=== PATIENT | male | born 1950 | race Caucasian/White ===

== ENCOUNTER 2017-12-04 10:05 | Inpatient (IN) ==
--- NOTE | 2017-12-04 10:20 | Anesthesia Evaluation PreOp ---
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 makes insulin and is treated as a type I diabetic for this reason; wears insulin pump), GERD Anesthesia History: No Prior Anesthetic Complications Alcohol Use: none Drug use: none Medications and Allergies Abatacept [Orencia] 04/07/16 [History] Amitriptyline [Elavil] 25 mg PO DAILY 04/07/16 [History] Aspirin [Lo-Dose Aspirin EC] 81 mg PO DAILY 04/07/16 [History] Atorvastatin [Lipitor] 40 mg PO HS 04/07/16 [History] Doxycycline 1 tab PO BID 04/07/16 [History] Fenofibrate 145 mg PO DAILY 04/07/16 [History] Insulin LISPRO [Humalog] 2 unit SQ AD 04/07/16 [History] LORazepam [Ativan] 1 tab PO DAILY 04/07/16 [History] Lisinopril [Zestril] 10 mg PO DAILY 04/07/16 [History] Magnesium Citrate 295 ml PO ONCE PRN #1 solution 04/07/16 [Rx] Multi-Day Vitamins 1 tab PO DAILY 04/07/16 [History] Omeprazole [PriLOSEC] 40 mg PO DAILY 04/07/16 [History] OxyCODONE/APAP 10/325 [Percocet 10/325 MG] 1 tab PO TID 04/07/16 [History] Polyethylene Glycol 3350 [MiraLAX Powder Bulk 17.9 Oz] 1 scoop PO DAILY #510 gm 04/07/16 [Rx] Voriconazole [VFend] 200 mg PO Q12HR 04/07/16 [History] Albuterol Sulfate [Albuterol Inhaler] 2 puff IH QID #1 inhaler 04/28/17 [Rx] Cefdinir [Omnicef] 300 mg PO BID #20 capsule 04/28/17 [Rx] PredniSONE [Deltasone] 20 mg PO DAILY 6 Days tablet 04/28/17 [Rx] chlorproMAZINE [Thorazine] 25 mg PO TID PRN #9 tablet 04/28/17 [Rx] Allergy/AdvReac Type Severity Reaction Status Date / Time levofloxacin [From Levaquin] Allergy Blister Verified 11/06/17 09:41 vancomycin Allergy Anaphylaxis Verified 11/06/17 09:41 - Meds/Allergy Pre-op Review Medications Reviewed: Yes Allergies Reviewed: Yes Beta Blockers on Current Med List: No Anesthesia Results - Labs Laboratory Tests 11/06/17 11/06/17 11/06/17 10:05 10:05 10:05 WBC 6.2 Hgb 12.8 L Hct 41.0 Plt Count 282 PT 10.1 INR 0.9 APTT 33.2 Sodium Potassium Chloride Carbon Dioxide BUN Creatinine Est GFR ( Amer) Est GFR (Non-Af Amer) BUN/Creatinine Ratio Glucose Est Mean Plasma Glucose 157 Hemoglobin A1c 7.1 H Calculated Osmolality Calcium 11/28/17 13:35 WBC Hgb Hct Plt Count PT INR APTT Sodium 139 Potassium 4.3 Chloride 105 Carbon Dioxide 26 BUN 29 H Creatinine 1.48 H Est GFR ( Amer) 58 L Est GFR (Non-Af Amer) 48 L BUN/Creatinine Ratio 20 Glucose 142 H Est Mean Plasma Glucose Hemoglobin A1c Calculated Osmolality 296 Calcium 10.5 H - Imaging EKG: report reviewed, image reviewed (SR) Anesthesia Exam Weight: 93 kg NPO (# of Hours): > 8 hrs - HEENT Pupil (Motor): Pupils equal, EOMI Mallampati: II Teeth: Edentulous Oral Opening: Greater than 3 - PARA PROFESSIONAL LOC: Oriented PARA PROFESSIONAL Motor: Normal RUE, Normal LUE, Normal RLE, Normal LLE, Normal Face - Cardiac Rhythm: Regular Murmur: None - Pulmonary Breath Sounds: bilateral Clear Respiratory Effort: Symmetrical Anesthesia Assess/Plan ASA Score: 3 Modified [place] Scale for Level of Consciousness: Cooperative, oriented, and tranquil Anesthetic Plan: Regional (Spinal block), MAC, Precautions (will keep insulin pump running; will avoid airway manipulation (neuraxial anesthesia with MAC over GETA) due to significant lung disease) Monitoring Plan: Standard Monitors Recovery Plan: PACU
--- NOTE | 2017-12-04 10:28 | History & Physical Report ---
Date of Encounter: 12/04/17 Time of Encounter: 10:27 24 Hour HP Update - Instructions Instructions: If the History and Physical is less than 30 days old and was completed prior to A.M. admission and or procedure and has NOT been updated on calendar day of procedure please complete this update prior to performing procedure. - Update Patient reports changes in Medical Condition: No Changes in examination, assessment, or condition: No Changes in Medication: No Preop tests/diagnostics Reviewed: Yes Surgery Remains Indicated: Yes Consent for Planned Operative Procedure(s) Verified: Yes - Pre-Operative Checklist Preoperative Checklist Indicated: No Prophylactic Antibiotic Ordered: Yes Is VTE Prophylaxis Indicated?: Yes
[2017-12-04] MEDS ORDERED: *HR* Morphine Sulfate/PF 10 MG/10 ML AMPUL ONE (10:54)
[2017-12-04] MEDS: Ringers Solution, Lactated 1,000 ML IVC SCH ×3 (11:00→16:57)
[2017-12-04] MEDS ORDERED: Ethanol\\Acetic Acid\\Na Ace\\Ben 1,000 ML IRRIG.SOLN IR ONE ×2 (11:01→11:11)
[2017-12-04] MEDS ORDERED: Albuterol 2.5 MG/3 ML NEBULIZER ONE (11:04)
[2017-12-04] MEDS ORDERED: CeFAZolin Syr 2,000MG/20 ML 2,000 MG/20 ML SYRINGE IVPB ONE (11:04)
[2017-12-04] MEDS ORDERED: Albuterol 2.5 MG/3 ML NEBULIZER IH ONE (11:04)
[2017-12-04] MEDS ORDERED: Lidocaine -MPF 1% 5 ML AMPUL ONE (11:06)
[2017-12-04] MEDS ORDERED: *HR* Midazolam HCl 2 MG/2 ML VIAL ONE (11:10)
[2017-12-04] MEDS ORDERED: *HR* FentaNYL (PF) 100 MCG/2 ML VIAL ONE (11:10)
[2017-12-04] MEDS ORDERED: Propofol 500 MG/50 ML INFUS..BTL ONE (11:29)
[2017-12-04] MEDS ORDERED: Lidocaine -MPF 2% 2 ML VIAL ONE (11:34)
[2017-12-04] MEDS ORDERED: Dexamethasone 4 MG/ML VIAL ONE (11:53)
[2017-12-04] MEDS ORDERED: Ondansetron 4 MG/2 ML VIAL ONE (11:53)
[2017-12-04] MEDS ORDERED: *HR* PHENYLEPHRINE 1,000 MCG/10 ML SYRINGE IVP ONE (11:57)
--- NOTE | 2017-12-04 12:11 | Anesthesia Procedures ---
Date of Encounter: 12/04/17 Time of Encounter: 11:29 Procedures: Anesthesia - Epidural/Spinal Patient ID/Chart reviewed: Yes Patient examined: Yes Consent Obtained: Yes Supplemental Oxygen: Nasal Cannula Supplemental Oxygen Rate (L/min): 2 Sedation: Versed (mg): 2 Sedation: Fentanyl (mcg): 100 Site Prep: Sterile prep and drape, Povidone-Iodine 1% Patient position: upright Local Anesthetic: Lidocaine 1% Amount of Local Anesthetic used: 3 Interspace Used: L3-L4 Blood: No CSF: Yes Paresthesia: No Spinal Needle Gauge: 22 Spinal Dose: 2.5cc 0.5% pf marcaine with 300mcg duramorph Procedure: performed by VENTURA Gay and Waleska Gilman CRNA. HR1, monitors and O2 on, vss, sitting upright, sterile prep/drape, 1% lido to L3-4, 22g quuincke to +CSF, -Heme, -Paresthesia, +swirl, smooth inj., pt to supine after inj. tolerated well, naac.
[2017-12-04] MEDS ORDERED: *HR* Propofol 200 MG/20 ML VIAL IVP ONE (12:31)
--- NOTE | 2017-12-04 12:44 | Orthopedic Operative Note ---
Date of procedure: 12/04/17 Pre-op diagnosis: left hip arthritis Post-op diagnosis: same Procedure: Procedure: Left Total Hip Replacment robotic-assisted Estimated blood loss: 200 cc Hardware: Metal and polyethylene replacement. Olga DM Cup: 60 cup Femoral 11 size stem Head: +4 head with Kristi Procedural Notes: Grade 4 arthritic changes femoral head acetabular socket, procedure performed with robotic assistance. 2 mm longer operative versus nonoperative Operative procedure: The patient was brought to the operating room and placed on the operating room table. After general anesthesia was administered the patient was placed in the lateral decubitus position with the operative leg up. All pressure points were padded appropriately and the head was stabilized in the neutral position. The operative extremity was prepped and draped in the sterile surgical fashion patient received IV antibiotic prior to skin incision. 3 Steinmann pins were placed in the iliac crest 3 cm proximal to the anterior superior iliac spine thi s was for the robotic-assisted sensor. This was done through a small 2 cm incision. A standard posterior approach is made to the operative hip, the incision was made through the skin and subcutaneous tissue hemostasis was obtained with Bovie cautery. Using careful sharp dissection the fascia was identified and incised exposing the external rotators. The greater trochanter was marked, and length was measured at this time utilizing robotic assistance. The external rotators were released off the greater trochanter and tagged with #2 FiberWire suture. The capsule was T'd open and the hip was brought into internal rotation. Patient noted to have grade 4 arthritic changes femoral head. The femoral neck cut was made at the appropriate level roughly 20 mm proximal to the lesser trochanter aced on preoperative templating. An anterior capsulotomy was performed for the anterior retractor. Soft tissues removed from the acetabulum. Patient noted to have grade 4 arthritic changes acetabulum. The acetabulum reference point was confirmed. The acetabulum was then mapped with robotic assistance. Based on the preoperative plan the acetabulum was reamed in one step with a 59 reamer. The 60 acetabulum was impacted with robotic assistance and 40 degrees of abduction and 20 degrees of anteversion. The hip was brought back in to internal rotation and prepared with the box sealing machine catcher followed by the canal finder followed by the reaming process to a size 11/12 broaching process in 20 degrees anteversion. It was broached up to the appropriate size 11 Trial reduction revealed leg lengths close to normal. The femoral implant was impacted in place in 20 degrees of anteversion. Trial reduction found the hip to be stable with 4 head and Kristi. The trials were removed and the real implants were impacted in place. The hip was reduced, patient had robotic confirmed leg length of 15 mm longer than the contralateral side. The hip had excellent stability with forward flexion to 90 degrees adduction of 30 degrees and internal rotation of 60 degrees. The hip had no shuck. The hip sat with an antibacterial solution. It was irrigated out with 2 L of pulse irrigation. The Steinmann pins were removed. The hip was closed by the PA. The deep tissue was irrigated and closed deep with #1 PDS suture superficially with 0 PDS suture and skin was closed with Dermabond and zip tie. The patient was placed in a sterile dressing and abduction pillow. The patient was extubated and transferred to the recovery room in stable condition. Anesthesia: spinal Surgeon: Brant Alfonso Was there an sales operations assistant present: Yes Modern [employer] Professor: Susanne Jc Estimated blood loss (cc): 200 Condition: stable Disposition: PACU
[2017-12-04] MEDS: *HR* HYDROmorphone (PF) 1 MG/ML SYRINGE IVP PRN ×2 (13:15→13:20)
[2017-12-04] MEDS ORDERED: Bupivacaine/Clonidine Syringe 1 EACH SYRINGE ONE (13:18)
--- NOTE | 2017-12-04 13:37 | Anesthesia Evaluation Post Op ---
Date of Encounter: 12/04/17 Time of Encounter: 13:36 - Vital Signs Vital Signs: Vital Signs/O2 Sat/Glucose, Most Recent Temp Pulse Resp BP Pulse Ox 98.1 F 64 16 118/66 96 12/04/17 13:35 12/04/17 13:35 12/04/17 13:35 12/04/17 13:35 12/04/17 13:35 Blood Glucose* 145 - Lungs Lungs: Clear Ascult./Percussion - Airway Airway: Non-obstructed - Cardiovascular Regular Rate, Baseline Rhythm - Mental Status Mental Status: Alert & Oriented, Answers Appropriately - Pain Pain Scale: 3 Pain Scale used: Bourgeois-Olivares (Faces) - Nausea Vomiting Nausea Vomiting: Not Present - Hydration Hydration: Tolerates oral liquids Notes: 12/04/17 13:36 naac - Discharge PostOp Status: Transfer Patient to floor
[2017-12-04] MEDS ORDERED: *HR* LORazepam 0.5 MG TABLET PO PRN (13:54)
[2017-12-04] MEDS ORDERED: Triamcinolone Acet 0.1% CRM 15 GM TUBE TP PRN (13:54)
[2017-12-04] MEDS ORDERED: MOM Conc 10 ML UD.LIQ PO PRN (13:54)
[2017-12-04] MEDS ORDERED: Temazepam 15 MG CAPSULE PO PRN (13:54)
[2017-12-04] MEDS ORDERED: Naloxone 0.4 MG/ML INJ IVP PRN (13:54)
[2017-12-04] MEDS ORDERED: FluocinoNIDE 0.05% CRM 15 GM TUBE TP PRN (13:54)
[2017-12-04] MEDS ORDERED: *HR* OxyCODONE/APAP 5/325 TABLET PO PRN (13:54)
[2017-12-04] MEDS ORDERED: Sennosides 8.6 MG TABLET PO PRN (13:54)
[2017-12-04] MEDS ORDERED: Ondansetron 4 MG/2 ML VIAL IVP PRN (13:54)
[2017-12-04 14:00] LABS: Hematocrit 35.7 % (37.5-50.1); Hemoglobin 11.1 g/dL (12.9-16.9)
[2017-12-04] MEDS: Cholecalciferol (D-3) 1,000 UNIT TABLET PO SCH (14:08)
[2017-12-04] MEDS: *HR* OxyCODONE Immed Rel 5 MG TABLET PO PRN (14:11)
--- NOTE | 2017-12-04 16:22 | Discharge Summary ---
- NOTES TO OUTPATIENT PROVIDER Notes to Outpatient Provider: Urology - bph, needed gerard catheter x 2 days. acute blood loss anemia - pcp Orders not resulted at time of discharge: Pending orders 12/04/17 12:38 Surgical Pathology [PTH] Routine 12/05/17 04:00 Basic Metabolic Panel AM 0400 Hemoglobin and Hematocrit [HEME] AM 0400 12/06/17 04:00 Basic Metabolic Panel AM 0400 Hemoglobin and Hematocrit [HEME] AM 0400 Date of Encounter: 12/06/17 Time of Encounter: 13:00 - Discharge Diagnosis (1) Status post total hip replacement, left Priority: Primary Status: Acute Comments: Opsite dressing, leave intact until first post-operative visit. If dressing becomes >50% saturated, contact office, remove dressing and place appropriate dressing in its place. Do not allow for dressing to get wet. Zipline in place, plan to remove at post-operative day #14-16. Total Joint Precautions x 6 weeks Apply cold therapy wrap 3-6x/day for 20 minutes at a time. Encourage ambulation throughout the day Use Incentive spirometer 10x/hour. Elevate affected extremity above heart as tolerated. Brace: Wear hip abductor brace at night x 6 weeks. (2) Arthritis of left hip Priority: Primary Status: Acute (3) COPD (chronic obstructive pulmonary disease) Priority: Secondary Status: Chronic Qualifiers: COPD type: unspecified COPD Qualified Code(s): J44.9 - Chronic obstructive pulmonary disease, unspecified (4) CKD (chronic kidney disease) stage 3, GFR 30-59 ml/min Priority: Secondary Status: Chronic (5) Chronic pain Priority: Secondary Status: Chronic Qualifiers: Chronic pain type: other chronic pain Qualified Code(s): G89.29 - Other chronic pain (6) DMII (diabetes mellitus, type 2) Priority: Secondary Status: Chronic Qualifiers: Diabetes mellitus intermediate insulin use: unspecified intermediate insulin use status Diabetes mellitus complication status: with unspecified complications Qualified Code(s): E11.8 - Type 2 diabetes mellitus with unspecified complications (7) HTN (hypertension) Priority: Secondary Status: Chronic Qualifiers: Hypertension type: essential hypertension Qualified Code(s): I10 - Essential (primary) hypertension (8) Acute blood loss anemia Priority: Secondary Status: Acute Comments: Stable, asympt at discharge, repeat cbc at facility. Vital Signs Temp Pulse Resp BP Pulse Ox 12/06/17 10:59 97.8 F 92 16 122/73 98 12/06/17 06:32 98.5 F 86 16 128/76 95 12/06/17 03:58 98.3 F 84 18 123/79 96 12/05/17 23:12 97.9 F 88 18 120/72 97 12/05/17 18:58 98.1 F 92 18 119/63 96 12/05/17 14:23 98.9 F 91 18 143/72 98 Short CBC 12/06/17 Range/Units 04:26 Hgb 9.3 L D (12.9-16.9) g/dL Hct 29.1 L (37.5-50.1) % BMP 12/06/17 Range/Units 04:26 Sodium 137 (136-145) mEq/L Potassium 4.4 (3.5-5.1) mEq/L Chloride 101 (98-107) mEq/L Carbon Dioxide 27 (23-29) mEq/L BUN 24 H (8-23) mg/dL Creatinine 1.26 (0.70-1.30) mg/dL Glucose 154 H (70-105) mg/dL Calcium 9.4 (8.6-10.3) mg/dL (9) Acute urinary retention Priority: Secondary Status: Resolved Comments: Patient had 24 hours of urinary retention, gerard catheter placed x 24 hours, patient was able to urinary on 12/06 without difficulty. Patient has history of BPH, will follow up OP with urology, STrict I/Os at facility - Hospital Course Hospital course: Mr. Hernandez is a 67 year old male, status post Total Hip replacement . Patient seen at bedside, without complaints. A&O x 3 Afebrile, vital signs stable. Vital Signs Temp Pulse Resp BP Pulse Ox 12/06/17 10:59 97.8 F 92 16 122/73 98 12/06/17 06:32 98.5 F 86 16 128/76 95 12/06/17 03:58 98.3 F 84 18 123/79 96 12/05/17 23:12 97.9 F 88 18 120/72 97 12/05/17 18:58 98.1 F 92 18 119/63 96 12/05/17 14:23 98.9 F 91 18 143/72 98 Intake and Output 12/05/17 12/06/17 12/06/17 23:59 07:59 15:59 Intake Total 1200 / 1200 200 / 200 Output Total 1000 / 1000 1000 / 1000 250 / 250 Balance 200 / 200 -800 / -800 -250 / -250 Intake: IV Fluids 1000 / 1000 Lactated Ringers 1,000 ML @ 75 1000 / 1000 mls/hr IVC .[id number] [facility] Rx#: [id number] Oral 200 / 200 200 / 200 Output: Urine 250 / 250 Catheter 1000 / 1000 1000 / 1000 Other: # Voids 1 Blood Glucose* 164 180 139 Labs reviewed. H/H - stable, asymptomatic Short CBC 12/06/17 Range/Units 04:26 Hgb 9.3 L D (12.9-16.9) g/dL Hct 29.1 L (37.5-50.1) % BMP 12/06/17 Range/Units 04:26 Sodium 137 (136-145) mEq/L Potassium 4.4 (3.5-5.1) mEq/L Chloride 101 (98-107) mEq/L Carbon Dioxide 27 (23-29) mEq/L BUN 24 H (8-23) mg/dL Creatinine 1.26 (0.70-1.30) mg/dL Glucose 154 H (70-105) mg/dL Calcium 9.4 (8.6-10.3) mg/dL Pain control: adequate Participating in PT. All questions and concerns addressed. Educated on use of incentive spirometer. Encouraged ambulation and proper hydration. Patient educated on post-operative restrictions and post-operative care. Assessment and plan: Continue with postoperative care Discharge plan: [facility] , discharge today or once authorized* Patient had 24 hours of urinary retention, gerard catheter placed x 24 hours, p atient was able to urinary on 12/06 without difficulty. Patient has history of BPH, will follow up OP with urology, STrict I/Os at facility Acute blood loss anemia - monitor at facility - Time Spent with Patient Total time spent providing and/or coordinating discharge services: - Discharge Medications Prescriptions: Aspirin Enteric Coated [Aspirin EC] 325 mg PO BID #20 tablet. LORazepam [Ativan] 0.5 mg PO BID PRN 3 Days #6 tablet PRN Reason: Anxiety Home Medications: Atorvastatin [Lipitor] 40 mg PO HS 04/07/16 [History] Fenofibrate Nanocrystallized [Fenofibrate] 145 mg PO DAILY 04/07/16 [History] Insulin LISPRO [Humalog] 0 unit SQ AD 04/07/16 [History] Aspirin Enteric Coated [Aspirin EC] 325 mg PO BID #20 tablet.dr 12/04/17 [Rx] Betamethasone/Propylene Glyc [Betamethasone Dp Aug 0.05% Lot] 1 appl TP BID PRN 12/04/17 [History] Doxycycline Hyclate 100 mg PO BID 12/04/17 [History] Ergocalciferol (VITAMIN D2) [Vitamin D2] 50,000 unit PO MOFR 12/04/17 [History] LORazepam [Ativan] 0.5 mg PO BID PRN 3 Days #6 tablet 12/04/17 [Rx] Triamcinolone Acet 0.1% CRM [Kenalog] 1 appl TP BID PRN 12/04/17 [History] Allergies/Adverse Reactions: Allergy/AdvReac Type Severity Reaction Status Date / Time levofloxacin [From Levaquin] Allergy Blister Verified 12/04/17 11:05 vancomycin Allergy Anaphylaxis Verified 12/04/17 11:05 Date of admission: 12/04/17 13:48 Primary care physician: Genny Wright CNP Consults: 12/04/17 13:54 Consult to Nurse Navigator [CONS] Routine Comment: ortho navigator Consult to Occupational Therapy [CONS] Routine Comment: Evaluate, develop and implement POC Reason for Consult: total hip replacement Does patient have active BEDREST order?: No Is patient medically & hemodynamically stable?: Yes Consult to Physical Therapy [CONS] Routine Comment: Evaluate, develop and implement POC Reason for Consult: total hip replacement Does patient have active BEDREST order?: No Is patient medically & hemodynamically stable?: Yes Consult to Editorial Assistant [CONS] Routine Reason for SW Consult: post op joint replacement RT Post Op Consult [CONS] Routine - VTE Documentation of Mechanical Device: Venous foot pump, device Labs on day of discharge: Labs from last 24 hours 12/04/17 12/04/17 13:20 10:45 Hgb 11.1 L Hct 35.7 L POC Glucose 132 H - Impressions ITS Impressions Hip X-Ray 12/04/17 08:05 IMPRESSION: Status post total left hip arthroplasty, in gross anatomic alignment, with postoperative changes, without evidence of hardware complication, fracture or dislocation. D/ / Cesar Coombs MD / Cesar Coombs MD Interpreting Provider: Cesar Coombs MD - Patient Status Disposition: Transfer Inpatient Rehab Fac Condition: Good Functional capacity at discharge: uses cane/walker Overall status at discharge: patient is progressing back to baseline - Discharge Instructions Instructions: Total Hip Replacement (DC) Follow Up With: Genny Wright, GRAPPLE YARDER OPERATOR [Primary Care Provider] - - Diet and Activity Activity: ambulate only with your walker
[2017-12-04] MEDS: Ascorbic Acid 500 MG TABLET PO SCH (16:38)
[2017-12-04] MEDS: *HR* Enoxaparin 30 MG/0.3 ML SYRINGE SQ SCH (16:38)
[2017-12-04] MEDS ORDERED: *HR* Enoxaparin 30 MG/0.3 ML SYRINGE SQ SCH (18:00)
[2017-12-05 03:34] LABS: Hematocrit 34.1 % (37.5-50.1); Hemoglobin 10.8 g/dL (12.9-16.9)
[2017-12-05 03:54] LABS: Calcium 10.1 mg/dL (8.6-10.3); Potassium 4.4 mEq/L (3.5-5.1)
[2017-12-05] MEDS: *HR* Enoxaparin 30 MG/0.3 ML SYRINGE SQ SCH ×2 (05:03→16:58)
[2017-12-05] MEDS: *HR* OxyCODONE Immed Rel 5 MG TABLET PO PRN ×4 (05:05→20:33)
[2017-12-05] MEDS: Fenofibrate 54 MG TABLET PO SCH (08:15)
[2017-12-05] MEDS: Multivit/Ca/Min/Fe/FA 1 TAB TABLET PO SCH (08:16)
[2017-12-05] MEDS: Ascorbic Acid 500 MG TABLET PO SCH ×2 (08:16→16:58)
[2017-12-05] MEDS: Cholecalciferol (D-3) 1,000 UNIT TABLET PO SCH (08:16)
[2017-12-05] MEDS: Ringers Solution, Lactated 1,000 ML IVC SCH (08:16)
--- NOTE | 2017-12-05 10:43 | Orthopedics Progress Note ---
Date of Encounter: 12/05/17 Time of Encounter: 08:04 Subjective Interval history: Patient was seen this morning patient with postop urinary retention, reports frequency preop, Noirega placed and urology will be consulted Afebrile vital signs stable. Operative extremity: Neurovascularly intact Dressing clean dry and intact Calves nontender Assessment and plan: Continue with postoperative care Objective Vital signs: Vital Signs Temp Pulse Resp BP Pulse Ox 12/05/17 06:39 98.1 F 85 18 126/83 98 12/05/17 03:48 98.6 F 70 17 111/76 98 12/04/17 23:41 98.8 F 85 18 128/72 96 12/04/17 20:10 96 12/04/17 19:15 98.3 F 86 16 139/74 96 12/04/17 19:01 98.7 F 111 18 146/89 96 12/04/17 15:35 98.0 F 87 16 127/76 95 12/04/17 13:57 97.5 F L 63 17 156/83 99 12/04/17 13:45 98.2 F 65 16 140/77 96 12/04/17 13:35 98.1 F 64 16 118/66 96 12/04/17 13:25 98.1 F 63 16 122/66 95 12/04/17 13:15 98.0 F 71 16 121/73 100 12/04/17 13:05 98.0 F 77 16 98/64 100 12/04/17 11:29 88 14 129/72 99 12/04/17 11:08 79 15 135/72 99 12/04/17 10:48 97.9 F 78 18 141/87 97 Intake and Output 12/04/17 12/05/17 12/05/17 23:59 07:59 15:59 Intake Total 340 / 340 100 / 100 Output Total 1400 / 1400 450 / 450 Balance -1060 / -1060 -350 / -350 Intake: IV Fluids 100 / 100 100 / 100 Ancef 2,000 MG In 0.9 % Sodium 100 / 100 100 / 100 Chloride 100 ML @ 200 mls/hr IVPB Q8HR [facility] Rx#:[id number] Oral 240 / 240 Output: Urine 300 / 300 450 / 450 Straight Cath 1100 / 1100 Other: Meal Dinner Percent of Meal Consumed 100% Weight 92.988 kg Blood Glucose* 182 237 Patient Weight 12/05/17 23:59 Weight 92.988 kg - Labs CBC & BMP: 12/05/17 03:10 12/05/17 03:10 Labs: Abnormal lab results Hgb 10.8 g/dL (12.9-16.9) L 12/05/17 03:10 Hct 34.1 % (37.5-50.1) L 12/05/17 03:10 BUN 34 mg/dL (8-23) H 12/05/17 03:10 Creatinine 1.44 mg/dL (0.70-1.30) H 12/05/17 03:10 Est GFR (Non-Af Amer) 49 (> 60) L 12/05/17 03:10 POC Glucose 335 mg/dL (70-99) H 12/04/17 20:02 - VTE Documentation of Mechanical Device: Venous foot pump, device Consult Discharge Plan - Plan Referrals: Genny Wright, SECTION LEADER AND MACHINE SETTER [Primary Care Provider] - Prescriptions: Aspirin Enteric Coated [Aspirin EC] 325 mg PO BID #20 tablet. LORazepam [Ativan] 0.5 mg PO BID PRN 3 Days #6 tablet PRN Reason: Anxiety OxyCODONE/APAP 10/325 [Percocet 10/325 MG] 1 tab PO Q4H PRN 2 Days #12 tablet PRN Reason: Severe Pain
[2017-12-05] MEDS: Doxycycline 100 MG CAPSULE PO SCH ×2 (14:35→22:31)
[2017-12-05] MEDS: traMADol 50 MG TABLET PO PRN (17:03)
--- NOTE | 2017-12-05 17:53 | Event Note ---
Date of Encounter: 12/05/17 Time of Encounter: 17:50 PCR - POD#1 - Left THR 12/04. Patient seen at bedside, without complaints. A&O x 3 *Takes Doxycycline chronically for respiratory infection history - will resume this in hospital Afebrile, vital signs stable. Labs reviewed. H/H - stable, asymptomatic Pain control: adequate Participating in PT. All questions and concerns addressed. Educated on use of incentive spirometer. Encouraged ambulation and proper hydration. Patient educated on post-operative restrictions and post-operative care. Assessment and plan: Continue with postoperative care Discharge plan: ECF today if authorized, discharge today. Short CBC 12/05/17 Range/Units 03:10 Hgb 10.8 L (12.9-16.9) g/dL Hct 34.1 L (37.5-50.1) % BMP 12/05/17 Range/Units 03:10 Sodium 139 (136-145) mEq/L Potassium 4.4 (3.5-5.1) mEq/L Chloride 107 (98-107) mEq/L Carbon Dioxide 25 (23-29) mEq/L BUN 34 H (8-23) mg/dL Creatinine 1.44 H (0.70-1.30) mg/dL Glucose 75 (70-105) mg/dL Calcium 10.1 (8.6-10.3) mg/dL Vital Signs Temp Pulse Resp BP Pulse Ox 12/05/17 14:23 98.9 F 91 18 143/72 98 12/05/17 10:34 98.3 F 82 18 126/65 98 12/05/17 09:39 98.9 F 89 19 118/66 99 12/05/17 06:39 98.1 F 85 18 126/83 98 12/05/17 03:48 98.6 F 70 17 111/76 98 12/04/17 23:41 98.8 F 85 18 128/72 96 12/04/17 20:10 96 12/04/17 19:15 98.3 F 86 16 139/74 96 12/04/17 19:01 98.7 F 111 18 146/89 96 Intake and Output 12/05/17 12/05/17 12/05/17 07:59 15:59 23:59 Intake Total 1100 / 1100 350 / 350 Output Total 450 / 450 2450 / 2450 Balance 650 / 650 -2100 / -2100 Intake: IV Fluids 1100 / 1100 Lactated Ringers 1,000 ML @ 75 1000 / 1000 mls/hr IVC .[id number] [facility] Rx#: [id number] Ancef 2,000 MG In 0.9 % Sodium 100 / 100 Chloride 100 ML @ 200 mls/hr IVPB Q8HR [facility] Rx#:[id number] Oral 350 / 350 Output: Urine 450 / 450 250 / 250 Catheter 2200 / 2200 Other: Meal Lunch Percent of Meal Consumed 100% Weight 92.988 kg Blood Glucose* 237 197 Patient Weight 12/05/17 23:59 Weight 92.988 kg
--- NOTE | 2017-12-05 17:55 | Physician Discharge Referral ---
ExtendedCare Referral Info Transfer To: ECF Provider in Charge after Transfer: PCP Institutional Level of Care: Skilled - Diagnosis (1) Status post total hip replacement, left Priority: Primary Status: Acute (2) Arthritis of left hip Priority: Primary Status: Acute (3) COPD (chronic obstructive pulmonary disease) Priority: Secondary Status: Chronic (4) CKD (chronic kidney disease) stage 3, GFR 30-59 ml/min Priority: Secondary Status: Chronic (5) Chronic pain Priority: Secondary Status: Chronic (6) DMII (diabetes mellitus, type 2) Priority: Secondary Status: Chronic (7) HTN (hypertension) Priority: Secondary Status: Chronic (8) Acute blood loss anemia Status: Acute (9) Acute urinary retention Status: Resolved Expected Duration of Placement: < 30 days Prognosis: Good Aware of Diagnosis: Patient Aware of Prognosis: Patient - Transfer Medications Prescriptions: Aspirin Enteric Coated [Aspirin EC] 325 mg PO BID #20 tablet. LORazepam [Ativan] 0.5 mg PO BID PRN 3 Days #6 tablet PRN Reason: Anxiety Home Medications: Atorvastatin [Lipitor] 40 mg PO HS 04/07/16 [History] Fenofibrate Nanocrystallized [Fenofibrate] 145 mg PO DAILY 04/07/16 [History] Insulin LISPRO [Humalog] 0 unit SQ AD 04/07/16 [History] Aspirin Enteric Coated [Aspirin EC] 325 mg PO BID #20 tablet. 12/04/17 [Rx] Betamethasone/Propylene Glyc [Betamethasone Dp Aug 0.05% Lot] 1 appl TP BID PRN 12/04/17 [History] Doxycycline Hyclate 100 mg PO BID 12/04/17 [History] Ergocalciferol (VITAMIN D2) [Vitamin D2] 50,000 unit PO MOFR 12/04/17 [History] LORazepam [Ativan] 0.5 mg PO BID PRN 3 Days #6 tablet 12/04/17 [Rx] Triamcinolone Acet 0.1% CRM [Kenalog] 1 appl TP BID PRN 12/04/17 [History] Allergies/Adverse Reactions: Allergy/AdvReac Type Severity Reaction Status Date / Time levofloxacin [From Levaquin] Allergy Blister Verified 12/04/17 11:05 vancomycin Allergy Anaphylaxis Verified 12/04/17 11:05 - Respiratory Orders None Smoking Cessation: Smoking cessation has been advised. For more information, call the [place] Tobacco Quit Line at 0-808-EEVO-NOW. - Lab Orders Lab Orders: CBC, Other (include drug levels w/frequency) (BMP - Kidney function; Strict I&Os) - Advance Directives Code Status: Full Code - Mobility Orders Chair, Ambulate - Rehabiliation Orders Rehab Potential: Good Rehab Orders: ROM Exercises, Evaluation for Physical Therapy, Evaluation for Occupational Therapy - Treatments Skin tear care topically daily PRN per policy, May check for fecal impaction r ectally daily PRN, Fleet enema rectally every other day PRN cleansing purposes List/Other: Opsite dressing, leave intact until first post-operative visit. If dressing becomes >50% saturated, contact office, remove dressing and place appropriate dressing in its place. Do not allow for dressing to get wet. Zipline/[place] in place, plan to remove at post-operative day #14-16. Total Joint Precautions x 6 weeks Apply cold therapy wrap 3-6x/day for 20 minutes at a time. Encourage ambulation throughout the day Use Incentive spirometer 10x/hour. Elevate affected extremity above heart as tolerated. Brace: Wear hip abductor brace at night x 6 weeks - Diet Orders Regular CERTIFICATION: I certify that the transfer of the above named patient to an Extended Care Facility is necessary for the continuing treatment of the diagnosis listed. The above information is true and accurate reflection of patient's current condition. Confidential - Redisclosure prohibited without a patient's written consent.
[2017-12-06] MEDS: *HR* OxyCODONE Immed Rel 5 MG TABLET PO PRN ×2 (02:43→16:44)
[2017-12-06 05:15] LABS: Hematocrit 29.1 % (37.5-50.1); Hemoglobin 9.3 g/dL (12.9-16.9)
[2017-12-06] MEDS: *HR* Enoxaparin 30 MG/0.3 ML SYRINGE SQ SCH ×2 (05:30→16:44)
[2017-12-06] MEDS: traMADol 50 MG TABLET PO PRN ×2 (05:30→19:32)
[2017-12-06 05:32] LABS: BUN/Creatinine Ratio 19 (6-26); Blood Urea Nitrogen 24 mg/dL (8-23); Calcium 9.4 mg/dL (8.6-10.3); Carbon Dioxide 27 mEq/L (23-29); Chloride 101 mEq/L (98-107); Glucose 154 mg/dL (70-105); Osmolality,Calculated 291 (280-300); Potassium 4.4 mEq/L (3.5-5.1); Sodium 137 mEq/L (136-145); eGFR For Non-African Americans 57 (> 60)
--- NOTE | 2017-12-06 06:37 | Orthopedics Progress Note ---
Date of Encounter: 12/06/17 Time of Encounter: 06:36 Subjective Interval history: Patient was seen this morning patient was fully removed and evaluate ability to avoid, Afebrile vital signs stable. Operative extremity: Neurovascularly intact Dressing clean dry and intact Calves nontender Assessment and plan: Continue with postoperative care plan for discharged today Objective Vital signs: Vital Signs Temp Pulse Resp BP Pulse Ox 12/06/17 06:32 98.5 F 86 16 128/76 95 12/06/17 03:58 98.3 F 84 18 123/79 96 12/05/17 23:12 97.9 F 88 18 120/72 97 12/05/17 18:58 98.1 F 92 18 119/63 96 12/05/17 14:23 98.9 F 91 18 143/72 98 12/05/17 10:34 98.3 F 82 18 126/65 98 12/05/17 09:39 98.9 F 89 19 118/66 99 12/05/17 06:39 98.1 F 85 18 126/83 98 Intake and Output 12/05/17 12/05/17 12/06/17 15:59 23:59 07:59 Intake Total 350 / 350 1200 / 1200 200 / 200 Output Total 2450 / 2450 1000 / 1000 1000 / 1000 Balance -2100 / -2100 200 / 200 -800 / -800 Intake: IV Fluids 1000 / 1000 Lactated Ringers 1,000 ML @ 75 1000 / 1000 mls/hr IVC .[id number] [facility] Rx#: [id number] Oral 350 / 350 200 / 200 200 / 200 Output: Urine 250 / 250 Catheter 2200 / 2200 1000 / 1000 1000 / 1000 Other: Meal Lunch Percent of Meal Consumed 100% Blood Glucose* 197 164 - Labs CBC & BMP: 12/06/17 04:26 12/06/17 04:26 Labs: Abnormal lab results Hgb 9.3 g/dL (12.9-16.9) L D 12/06/17 04:26 Hct 29.1 % (37.5-50.1) L 12/06/17 04:26 BUN 24 mg/dL (8-23) H 12/06/17 04:26 Est GFR (Non-Af Amer) 57 (> 60) L 12/06/17 04:26 Glucose 154 mg/dL (70-105) H 12/06/17 04:26 POC Glucose 197 mg/dL (70-99) H 12/05/17 15:55 - VTE Documentation of Mechanical Device: Venous foot pump, device Consult Discharge Plan - Plan Referrals: Genny Wright, [employer] [Primary Care Provider] - Prescriptions: Aspirin Enteric Coated [Aspirin EC] 325 mg PO BID #20 tablet. LORazepam [Ativan] 0.5 mg PO BID PRN 3 Days #6 tablet PRN Reason: Anxiety
[2017-12-06] MEDS: Doxycycline 100 MG CAPSULE PO SCH ×2 (08:31→19:33)
[2017-12-06] MEDS: Fenofibrate 54 MG TABLET PO SCH (08:31)
[2017-12-06] MEDS: Multivit/Ca/Min/Fe/FA 1 TAB TABLET PO SCH (08:31)
[2017-12-06] MEDS: Cholecalciferol (D-3) 1,000 UNIT TABLET PO SCH (08:31)
[2017-12-06] MEDS: Ascorbic Acid 500 MG TABLET PO SCH ×2 (08:31→16:44)
[2017-12-07] MEDS: *HR* OxyCODONE Immed Rel 5 MG TABLET PO PRN ×5 (01:16→21:26)
[2017-12-07] MEDS: traMADol 50 MG TABLET PO PRN (04:24)
[2017-12-07] MEDS: *HR* Enoxaparin 30 MG/0.3 ML SYRINGE SQ SCH ×2 (06:07→16:23)
[2017-12-07 06:23] LABS: Hematocrit 28.9 % (37.5-50.1); Hemoglobin 9.1 g/dL (12.9-16.9)
[2017-12-07] MEDS: Fenofibrate 54 MG TABLET PO SCH (07:35)
[2017-12-07] MEDS: Doxycycline 100 MG CAPSULE PO SCH ×2 (07:36→21:26)
[2017-12-07] MEDS: Ascorbic Acid 500 MG TABLET PO SCH ×2 (07:36→16:23)
[2017-12-07] MEDS: Cholecalciferol (D-3) 1,000 UNIT TABLET PO SCH (07:36)
[2017-12-07] MEDS: Multivit/Ca/Min/Fe/FA 1 TAB TABLET PO SCH (07:36)
--- NOTE | 2017-12-07 10:39 | Orthopedics Progress Note ---
Date of Encounter: 12/07/17 Time of Encounter: 10:36 Subjective Interval history: S: Patient is seen today and has no complaints. O: Afebrile and vital signs are stable Operative extremity dressing is clean, dry, and intact. Neurovascularly intact distally A: Post left hip arthroplasty P: Resume postoperative care D/C Saturday Objective Vital signs: Vital Signs Temp Pulse Resp BP Pulse Ox 12/07/17 06:43 98.3 F 87 17 118/73 98 12/07/17 03:47 98.3 F 81 16 118/75 95 12/06/17 23:36 99.2 F 90 16 139/75 98 12/06/17 19:02 97.9 F 89 18 131/72 97 12/06/17 10:59 97.8 F 92 16 122/73 98 Intake and Output 12/06/17 12/07/17 12/07/17 23:59 07:59 15:59 Intake Total 240 / 240 240 / 240 Balance 240 / 240 240 / 240 Intake: Oral 240 / 240 240 / 240 Other: Meal Dinner Breakfast Percent of Meal Consumed 100% 100% # Voids 1 1 Weight 93 kg Blood Glucose* 127 205 Patient Weight 12/07/17 23:59 Weight 93 kg - Labs CBC & BMP: 12/07/17 05:38 12/06/17 04:26 Labs: Abnormal lab results Hgb 9.1 g/dL (12.9-16.9) L 12/07/17 05:38 Hct 28.9 % (37.5-50.1) L 12/07/17 05:38 BUN 24 mg/dL (8-23) H 12/06/17 04:26 Est GFR (Non-Af Amer) 57 (> 60) L 12/06/17 04:26 Glucose 154 mg/dL (70-105) H 12/06/17 04:26 POC Glucose 205 mg/dL (70-99) H 12/07/17 06:48 - VTE Documentation of Mechanical Device: Venous foot pump, device Consult Discharge Plan - Plan Instructions: Total Hip Replacement (DC) Referrals: Genny Wright, SPEAKER MOUNTER [Primary Care Provider] - Prescriptions: Aspirin Enteric Coated [Aspirin EC] 325 mg PO BID #20 tablet.
[2017-12-07] MEDS: Acetaminophen 325 MG TABLET PO PRN (13:22)
[2017-12-08] MEDS: *HR* OxyCODONE Immed Rel 5 MG TABLET PO PRN ×6 (01:47→22:35)
[2017-12-08] MEDS: *HR* Enoxaparin 30 MG/0.3 ML SYRINGE SQ SCH ×2 (05:30→16:28)
[2017-12-08 06:52] LABS: Hematocrit 31.9 % (37.5-50.1); Hemoglobin 10.1 g/dL (12.9-16.9)
[2017-12-08] MEDS: Fenofibrate 54 MG TABLET PO SCH (07:48)
[2017-12-08] MEDS: Ascorbic Acid 500 MG TABLET PO SCH ×2 (07:48→16:28)
[2017-12-08] MEDS: Cholecalciferol (D-3) 1,000 UNIT TABLET PO SCH (07:48)
[2017-12-08] MEDS: Multivit/Ca/Min/Fe/FA 1 TAB TABLET PO SCH (07:49)
[2017-12-08] MEDS: Doxycycline 100 MG CAPSULE PO SCH ×2 (07:49→20:18)
[2017-12-08] MEDS: Acetaminophen 325 MG TABLET PO PRN ×2 (07:55→20:18)
[2017-12-09] MEDS: *HR* OxyCODONE Immed Rel 5 MG TABLET PO PRN ×2 (03:44→07:43)
[2017-12-09] MEDS: *HR* Enoxaparin 30 MG/0.3 ML SYRINGE SQ SCH (05:18)
[2017-12-09 05:40] LABS: Hematocrit 27.6 % (37.5-50.1); Hemoglobin 8.8 g/dL (12.9-16.9)
--- NOTE | 2017-12-09 06:45 | Orthopedics Progress Note ---
Date of Encounter: 12/09/17 Time of Encounter: 06:44 - Assessment and Plan (1) Acute blood loss anemia Current Visit: Yes Status: Acute Subjective Interval history: Patient was seen this morning patient awaiting placement Afebrile vital signs stable. Operative extremity: Neurovascularly intact Dressing clean dry and intact Calves nontender Assessment and plan: Continue with postoperative care plan for discharged today when approved hemoglobin 27.6 Objective Vital signs: Vital Signs Temp Pulse Resp BP Pulse Ox 12/09/17 04:14 97.9 F 82 17 132/70 97 12/09/17 00:11 97.9 F 80 18 140/97 94 12/08/17 19:35 98.1 F 91 17 151/76 98 12/08/17 15:00 98.8 F 90 16 124/79 98 12/08/17 11:26 98.6 F 90 18 143/80 97 12/08/17 07:25 98.0 F 78 18 149/73 96 Intake and Output 12/08/17 12/08/17 12/09/17 15:59 23:59 07:59 Intake Total 960 / 960 1110 / 1110 Balance 960 / 960 1110 / 1110 Intake: Oral 960 / 960 1110 / 1110 Other: Meal Breakfast Dinner Percent of Meal Consumed 25% 65% # Voids 1 1 Weight 96.7 kg Blood Glucose* 212 99 - Labs CBC & BMP: 12/09/17 05:01 12/06/17 04:26 Labs: Abnormal lab results Hgb 8.8 g/dL (12.9-16.9) L 12/09/17 05:01 Hct 27.6 % (37.5-50.1) L 12/09/17 05:01 BUN 24 mg/dL (8-23) H 12/06/17 04:26 Est GFR (Non-Af Amer) 57 (> 60) L 12/06/17 04:26 Glucose 154 mg/dL (70-105) H 12/06/17 04:26 - VTE Documentation of Mechanical Device: Venous foot pump, device Consult Discharge Plan - Plan Instructions: Total Hip Replacement (DC) Referrals: Genny Wright, [employer] RO[employer] C[employer]TER [Primary Care Provider] - Prescriptions: Aspirin Enteric Coated [Aspirin EC] 325 mg PO BID #20 tablet.
[2017-12-09 07:22] VITALS: BP 142/85
[2017-12-09] MEDS: Fenofibrate 54 MG TABLET PO SCH (07:43)
[2017-12-09] MEDS: Cholecalciferol (D-3) 1,000 UNIT TABLET PO SCH (07:43)
[2017-12-09] MEDS: Doxycycline 100 MG CAPSULE PO SCH (07:43)
[2017-12-09] MEDS: Multivit/Ca/Min/Fe/FA 1 TAB TABLET PO SCH (07:43)
[2017-12-09] MEDS: Ascorbic Acid 500 MG TABLET PO SCH (07:43)
[2017-12-09] MEDS: Acetaminophen 325 MG TABLET PO PRN (10:11)
--- NOTE | 2017-12-09 12:42 | Physician Discharge Referral ---
Home Health/Hosp Referral Info Transfer to: Home Health Attending Provider: Provider in Charge Post Discharge: PCP - Diagnosis (1) Status post total hip replacement, left Status: Acute (2) Arthritis of left hip Priority: Primary Status: Acute (3) COPD (chronic obstructive pulmonary disease) Status: Chronic (4) CKD (chronic kidney disease) stage 3, GFR 30-59 ml/min Status: Chronic (5) Chronic pain Status: Chronic (6) DMII (diabetes mellitus, type 2) Status: Chronic (7) HTN (hypertension) Status: Chronic (8) Acute blood loss anemia Status: Acute (9) Acute urinary retention Status: Resolved - Respiratory Orders None Smoking Cessation: Smoking cessation has been advised. For more information, call the [place] Tobacco Quit Line at 7-024-RSBM-NOW. - Diet/Nutrition Diet/Nutrition Orders: Regular - Activity Activity Orders: Up ad marisela, Ambulate, Walker - Services Needed Following services are medically necessary services: Nursing, Home Health Aide, Physical Therapy, Occupational Therapy Home Care Orders: Total Hip replacement Precautions Apply cold therapy 3-6x/day for 20 minutes at a time. Encourage ambulation throughout the day and incentive spirometer 10x/hour. Elevate affected extremity as tolerated. Brace: Wear hip abduction pillow when laying/sleeping Opsite placed. Keep dressing intact until first follow up appointment. If > 50% saturated, notify office, remove dressing and place appropriate dressing back in place. Leave Zipline intact. Opsite dressing is water resistant, not water- proof. OK to shower, but do not get dressing wet. - Transfer Medications Prescriptions: Aspirin Enteric Coated [Aspirin EC] 325 mg PO BID #20 tablet. Home Medications: Atorvastatin [Lipitor] 40 mg PO HS 04/07/16 [History] Fenofibrate Nanocrystallized [Fenofibrate] 145 mg PO DAILY 04/07/16 [History] Insulin LISPRO [Humalog] 0 unit SQ AD 04/07/16 [History] Aspirin Enteric Coated [Aspirin EC] 325 mg PO BID #20 tablet. 12/04/17 [Rx] Betamethasone/Propylene Glyc [Betamethasone Dp Aug 0.05% Lot] 1 appl TP BID PRN 12/04/17 [History] Doxycycline Hyclate 100 mg PO BID 12/04/17 [History] Ergocalciferol (VITAMIN D2) [Vitamin D2] 50,000 unit PO MOFR 12/04/17 [History] Triamcinolone Acet 0.1% CRM [Kenalog] 1 appl TP BID PRN 12/04/17 [History] Allergies/Adverse Reactions: Allergy/AdvReac Type Severity Reaction Status Date / Time levofloxacin [From Levaquin] Allergy Blister Verified 12/04/17 11:05 vancomycin Allergy Anaphylaxis Verified 12/04/17 11:05 Certification: Further, I certify that my clinical findings support that this patient is homebound (i.e. absences from home require considerable and taxing effort and are for medical reasons or latter-day services or infrequently or short duration when for other reasons) because: Homebound Reason: Post-surgery restriction and or conditions limit ability to leave home Attestation: My signature below is to certify that this patient is under my care and that I, or nurse practitioner, or a physician's perioperative assistant working with me, has a [id number] encounter with this patient.
== END 2017-12-09 12:39 | DRG 470 ==
LOC: SAMDAY 10:05 → 3NENU 13:48
PROVIDERS: ADMIT Orthopaedic Surgery; ATTEND Orthopaedic Surgery

== ENCOUNTER 2019-10-22 22:00 | Inpatient (IN) ==
[2019-10-22 22:47] LABS: Basophils # 0.1 K/mcL (0.0-0.2); Eosinophils # 0.7 K/mcL (0.0-0.6); Eosinophils % 8.3 %; Hematocrit 37.1 % (37.5-50.1); Hemoglobin 11.6 g/dL (12.9-16.9); Immature Granulocytes % 0.2 % (0-4); Lymphocytes # 2.2 K/mcL (0.6-4.6); Lymphocytes % 26.7 %; Mean Corpuscular HGB Conc 31.3 g/dL (31.6-35.5); Mean Corpuscular Hemoglobin 31.7 pg (28.0-33.3); Mean Corpuscular Volume 101.4 fL (83.0-100.0); Mean Platelet Volume 8.7 fL (9.4-12.4); Monocytes # 0.7 K/mcL (0.0-1.3); Monocytes % 8.8 %; Neutrophils # 4.4 K/mcL (1.6-8.9); Platelet Count 374 K/mcL (140-400); Red Blood Count 3.66 M/mcL (4.19-5.50); Red Cell Distribution Width 14.1 % (11.5-14.5); White Blood Count 8.1 K/mcL (4.3-11.1)
[2019-10-22 22:59] LABS: Alanine Aminotransferase 16 Units/L (7-52); Albumin 4.3 g/dL (3.5-5.7); Albumin/Globulin Ratio 1.4 (1.1-2.2); Alkaline Phosphatase 86 Units/L (34-104); Aspartate Amino Transferase 14 Units/L (13-39); BUN/Creatinine Ratio 17 (6-26); Bilirubin,Indirect 0.4 mg/dL (0.0-1.0); Bilirubin,Total 0.4 mg/dL (0.3-1.0); Blood Urea Nitrogen 21 mg/dL (8-23); Calcium 9.9 mg/dL (8.6-10.3); Carbon Dioxide 21 mEq/L (23-29); Chloride 106 mEq/L (98-107); Globulin 3.1 g/dL (2.4-3.5); Glucose 86 mg/dL (70-105); Lipase 7 Units/L (11-82); Osmolality,Calculated 288 (280-300); Potassium 4.1 mEq/L (3.5-5.1); Sodium 138 mEq/L (136-145); Total Protein 7.4 g/dL (6.4-8.9); eGFR For African Americans > 60 (> 60); eGFR For Non-African Americans 58 (> 60)
[2019-10-22] MEDS ORDERED: MetroNIDAZOLE 500 MG/100 ML 500 MG/100 ML BAG IVPB ONE (23:07)
[2019-10-22] MEDS ORDERED: Piperacillin/Tazobactam 3.375 GM in Water for inj. (sterile) 20 ML IVP ONE (23:07)
[2019-10-22] MEDS ORDERED: Ondansetron 4 MG/2 ML VIAL IVP PRN (23:29)
[2019-10-22] MEDS ORDERED: Morphine Sulfate Oral CONC 10 MG/0.5 ML ORAL.SYG SL PRN (23:29)
[2019-10-22] MEDS ORDERED: 0.9 % Sodium Chloride 1,000 ML IVC SCH (23:30)
[2019-10-23] MEDS ORDERED: Dextrose Gel 15 GM/37.5 ML TUBE PO ONE (00:48)
[2019-10-23] MEDS ORDERED: Dextrose Gel 15 GM/37.5 ML TUBE PO PRN ×2 (02:06)
[2019-10-23] MEDS ORDERED: *HR* Dextrose 50 % in Water (Vial) 50 ML VIAL IVP PRN (02:06)
[2019-10-23] MEDS ORDERED: D5% in Water 1,000 ML IVC PRN (02:06)
[2019-10-23] MEDS: *HR* Heparin 5,000 UNIT/ML VIAL SQ SCH ×2 (05:53→18:41)
[2019-10-23] MEDS ORDERED: Insulin LISPRO 300 UNITS/3 ML VIAL SQ SCH (06:00)
[2019-10-23] MEDS ORDERED: Ondansetron 4 MG/2 ML VIAL IVP PRN (08:02)
[2019-10-23] MEDS ORDERED: *HR* Promethazine 25 MG/ML VIAL IVP PRN (08:02)
[2019-10-23] MEDS: Pantoprazole 40 MG VIAL IVP SCH (08:32)
[2019-10-23] MEDS: Piperacillin/Tazobactam 3.375 GM in 0.9 % Sodium Chloride Mini Bag 100 ML IVPB SCH ×2 (08:33→16:15)
[2019-10-23] MEDS: 0.9 % Sodium Chloride 1,000 ML IVC SCH ×2 (08:36→16:15)
[2019-10-23] MEDS ORDERED: 0.9 % Sodium Chloride 250 ML ONE (08:43)
[2019-10-23 10:19] LABS: Basophils # 0.1 K/mcL (0.0-0.2); Eosinophils # 0.6 K/mcL (0.0-0.6); Eosinophils % 10.3 %; Hematocrit 34.9 % (37.5-50.1); Immature Granulocytes % 0.3 % (0-4); Lymphocytes % 16.9 %; Mean Corpuscular HGB Conc 31.5 g/dL (31.6-35.5); Mean Corpuscular Hemoglobin 32.6 pg (28.0-33.3); Mean Corpuscular Volume 103.6 fL (83.0-100.0); Mean Platelet Volume 8.6 fL (9.4-12.4); Monocytes # 0.5 K/mcL (0.0-1.3); Monocytes % 8.6 %; Neutrophils # 3.8 K/mcL (1.6-8.9); Platelet Count 263 K/mcL (140-400); Red Blood Count 3.37 M/mcL (4.19-5.50); Red Cell Distribution Width 14.2 % (11.5-14.5); Segmented Neutrophils % 62.9 %
[2019-10-23 10:21] LABS: BUN/Creatinine Ratio 13 (6-26); Blood Urea Nitrogen 15 mg/dL (8-23); Calcium 9.2 mg/dL (8.6-10.3); Carbon Dioxide 25 mEq/L (23-29); Chloride 108 mEq/L (98-107); Glucose 97 mg/dL (70-105); Osmolality,Calculated 293 (280-300); Potassium 4.1 mEq/L (3.5-5.1); Sodium 141 mEq/L (136-145); eGFR For African Americans > 60 (> 60); eGFR For Non-African Americans > 60 (> 60)
[2019-10-23] MEDS: INSULIN PUMP CARTRIDGE SQ SCH (12:37)
[2019-10-23] MEDS: *HR* OxyCODONE Immed Rel 5 MG TABLET PO PRN (12:51)
[2019-10-23] MEDS: *HR* Metoprolol 5 MG/5 ML VIAL IVP SCH ×2 (12:53→18:42)
[2019-10-24] MEDS: Piperacillin/Tazobactam 3.375 GM in 0.9 % Sodium Chloride Mini Bag 100 ML IVPB SCH ×3 (00:18→16:17)
[2019-10-24] MEDS: *HR* Metoprolol 5 MG/5 ML VIAL IVP SCH ×2 (00:18→05:25)
[2019-10-24] MEDS: *HR* OxyCODONE Immed Rel 5 MG TABLET PO PRN ×2 (00:26→09:14)
[2019-10-24] MEDS: *HR* Heparin 5,000 UNIT/ML VIAL SQ SCH ×2 (05:25→18:06)
[2019-10-24 08:12] LABS: Basophils % 0.6 %; Eosinophils # 0.8 K/mcL (0.0-0.6); Eosinophils % 12.2 %; Hematocrit 34.6 % (37.5-50.1); Immature Granulocytes % 0.2 % (0-4); Lymphocytes # 1.3 K/mcL (0.6-4.6); Mean Corpuscular HGB Conc 31.8 g/dL (31.6-35.5); Mean Corpuscular Hemoglobin 33.2 pg (28.0-33.3); Mean Corpuscular Volume 104.5 fL (83.0-100.0); Mean Platelet Volume 8.6 fL (9.4-12.4); Monocytes # 0.6 K/mcL (0.0-1.3); Monocytes % 9.9 %; Neutrophils # 3.7 K/mcL (1.6-8.9); Platelet Count 263 K/mcL (140-400); Red Blood Count 3.31 M/mcL (4.19-5.50); Red Cell Distribution Width 14.2 % (11.5-14.5); Segmented Neutrophils % 57.1 %; White Blood Count 6.5 K/mcL (4.3-11.1)
[2019-10-24 08:31] LABS: BUN/Creatinine Ratio 11 (6-26); Blood Urea Nitrogen 13 mg/dL (8-23); Calcium 9.1 mg/dL (8.6-10.3); Carbon Dioxide 23 mEq/L (23-29); Chloride 109 mEq/L (98-107); Glucose 76 mg/dL (70-105); Osmolality,Calculated 289 (280-300); Potassium 4.1 mEq/L (3.5-5.1); Sodium 140 mEq/L (136-145); eGFR For African Americans > 60 (> 60); eGFR For Non-African Americans > 60 (> 60)
[2019-10-24] MEDS: Pantoprazole 40 MG VIAL IVP SCH (09:16)
[2019-10-24] MEDS: 0.9 % Sodium Chloride 1,000 ML IVC SCH ×2 (09:17→20:25)
[2019-10-24] MEDS ORDERED: *HR* Metoprolol 5 MG/5 ML VIAL IVP PRN (10:03)
[2019-10-24] MEDS: INSULIN PUMP CARTRIDGE SQ SCH (11:25)
[2019-10-24] MEDS: lisinopriL 20 MG TABLET PO SCH (11:29)
[2019-10-25] MEDS: Piperacillin/Tazobactam 3.375 GM in 0.9 % Sodium Chloride Mini Bag 100 ML IVPB SCH ×2 (00:47→08:27)
[2019-10-25 05:20] VITALS: BP 129/75
[2019-10-25] MEDS: 0.9 % Sodium Chloride 1,000 ML IVC SCH (06:24)
[2019-10-25] MEDS: *HR* Heparin 5,000 UNIT/ML VIAL SQ SCH (06:24)
[2019-10-25] MEDS: *HR* OxyCODONE Immed Rel 5 MG TABLET PO PRN (08:26)
[2019-10-25] MEDS: lisinopriL 20 MG TABLET PO SCH (08:28)
[2019-10-25] MEDS: Pantoprazole 40 MG VIAL IVP SCH (08:28)
[2019-10-25 08:56] LABS: Basophils # 0.1 K/mcL (0.0-0.2); Basophils % 0.8 %; Eosinophils # 0.7 K/mcL (0.0-0.6); Eosinophils % 11.4 %; Hematocrit 33.8 % (37.5-50.1); Hemoglobin 10.3 g/dL (12.9-16.9); Immature Granulocytes % 0.3 % (0-4); Lymphocytes # 1.5 K/mcL (0.6-4.6); Lymphocytes % 22.9 %; Mean Corpuscular HGB Conc 30.5 g/dL (31.6-35.5); Mean Corpuscular Hemoglobin 31.8 pg (28.0-33.3); Mean Corpuscular Volume 104.3 fL (83.0-100.0); Mean Platelet Volume 8.8 fL (9.4-12.4); Monocytes # 0.6 K/mcL (0.0-1.3); Monocytes % 9.9 %; Neutrophils # 3.5 K/mcL (1.6-8.9); Platelet Count 266 K/mcL (140-400); Red Blood Count 3.24 M/mcL (4.19-5.50); Red Cell Distribution Width 13.9 % (11.5-14.5); Segmented Neutrophils % 54.7 %; White Blood Count 6.4 K/mcL (4.3-11.1)
[2019-10-25 09:13] LABS: BUN/Creatinine Ratio 10 (6-26); Blood Urea Nitrogen 12 mg/dL (8-23); Calcium 8.9 mg/dL (8.6-10.3); Carbon Dioxide 24 mEq/L (23-29); Chloride 109 mEq/L (98-107); Glucose 78 mg/dL (70-105); Osmolality,Calculated 289 (280-300); Sodium 140 mEq/L (136-145); eGFR For African Americans > 60 (> 60); eGFR For Non-African Americans 58 (> 60)
[2019-10-25] MEDS: INSULIN PUMP CARTRIDGE SQ SCH (11:49)
== END 2019-10-25 12:05 | disposition home or self-care (01) | DRG 394 ==
LOC: EMEROOARM 22:00 → 3ANU 22:00
PROVIDERS: ADMIT Surgery; ATTEND Surgery